=== PATIENT | female | born 1960 | race Caucasian/White ===

== ENCOUNTER → 2016-05-18 08:32 | Outpatient (CLI) | payer MEDICARE, MEDICAID ==
[2015-03-17 12:09] VITALS: BMI 31.3
[~2016-05-18 08:32] MED LIST: CELEXA40 MG PO; CYCLOBENZAPRINE10 MG PO; GLUCOPHAGE500 MG PO; HYDROCODON-ACE1 EAC7 PO; INDERAL10 MG PO; JANUMET 50-1,001 TAB PO; K-TAB10 MEQ PO; LASIX20 MG; LYRICA150 MG PO; NEURONTIN 300300 MG PO; NOVOLOG100 U/M1 SC; OMEPRAZOLE CAP 20M PO; OXYCODONE HCL5 MG PO; REXULTI PO; TYLENOL #4 W/CO1 TAB PO; VALIUM10 MG PO; ZOCOR10 MG PO
== END | disposition home or self-care (01) ==
LOC: D.CT 08:30
DX: Z12.31 Encounter for screening mammogram for malignant neoplasm of breast (principal); R10.11 Right upper quadrant pain

== ENCOUNTER → 2016-06-08 16:54 | Outpatient (CLI) | payer MEDICARE, MEDICAID ==
[2015-03-17 12:09] VITALS: BMI 31.3
== END | disposition home or self-care (01) ==
LOC: D.MAMMO 13:30
DX: Z12.31 Encounter for screening mammogram for malignant neoplasm of breast (principal); R10.11 Right upper quadrant pain

== ENCOUNTER 2016-07-12 06:36 | Day surgery (SDC) | payer MEDICARE ==
[~2016-07-12] VITALS: Ht 175.3 cm; Wt 91.2 kg
[~2016-07-12 06:36] MED LIST changes: -OXYCODONE HCL5 MG PO
[2016-07-12 06:49] LABS: BASOPHILS 0.3 % (0.0-2.0); EOSINOPHILS 4.3 % (0-7); HEMATOCRIT 33.9 % (36.0-48.0); HEMOGLOBIN 10.3 g/dL (12-16); IMMATURE GRANULOCYTES 0.3 % (0-5); LYMPHOCYTES 45.6 % (15-50); MCH 29.4 pg (26.0-34.0); MCHC 30.4 g/dL (31.0-37.0); MCV 96.9 fL (80.0-100.0); MEAN PLATELET VOLUME 11.3 fL (7.4-10.4); MONOCYTES 8.9 % (2-11); NEUTROPHILS 40.6 % (40-80); PLATELET COUNT 107 10x3/uL (130-400); RDW 13.9 % (11.5-14.5); WBC 3.7 10x3/uL (4.8-10.8)
--- NOTE | 2016-07-12 07:45 | NUR ---
0745 ABNORMAL VALUES ON CBC & CXR REPORT SHOWN TO DR. GARCÍA BY Dianne LANG R.N.. DR. GARCÍA STATES HE HAS SEEN THESE & IS OK WITH THEM. Ijeoma FULLER R.N.
[2016-07-12 08:02] VITALS: BP 145/78; Ht 175.3 cm; Wt 91.2 kg
[2016-07-12 08:50] LABS: CALC OSMOLALITY 286 mosm/kg (275-300); CALCIUM 9.2 mg/dL (8.5-10.1); CARBON DIOXIDE 30.9 mmol/L (21.0-32.0); CHLORIDE - SERUM 105 mmol/L (98-107); CREATININE - SERUM 0.6 mg/dL (0.6-1.3); GLUCOSE 129 mg/dL (74-106); POTASSIUM - SERUM 3.8 mmol/L (3.5-5.1); SODIUM 143 mmol/L (136-145); UREA NITROGEN 12 mg/dL (7-18); eGFR NON AFRICAN AMERICAN > 90 mL/min (90-120)
[2016-07-12] MEDS ORDERED: OXYCODONE HCL5 MG PO (09:52)
--- NOTE | 2016-07-12 10:22 | NUR ---
ANESTHESIA REPORTS THE PATIENT HAD AN O2 SAT OF 88% PER OPERATIVE. ANESTHESIA ORDERED OK TO DISCHARGE FROM PACU WITH O2 SAT > THEN 90%
--- NOTE | 2016-07-12 13:23 | OP ---
PATIENT NAME: FRANKI PEARSON MEDICAL RECORD: [id number] :62 LOCATION:[facility] ADMISSION DATE: SURGEON: ELTON GARCÍA MD DATE OF OPERATION: 07/12/2016 SURGEON: Elton García MD PREOPERATIVE DIAGNOSIS: Chronic cholecystitis. POSTOPERATIVE DIAGNOSES: 1. Chronic cholecystitis. 2. Cirrhosis ANESTHESIA: General. COMPLICATIONS: None. SPECIMENS: Gallbladder. Case was clean contaminated. ESTIMATED BLOOD LOSS: 30 cc. OPERATIVE COURSE: After consent was obtained, the patient was taken to the operating room and placed in the supine position on the operating table. Next, general anesthesia was given via endotracheal intubation after a timeout was performed to confirm the correct patient and procedure. Thereafter, the abdomen was prepped and draped in typical sterile fashion. Local anesthetic was injected just above the umbilicus. A stab incision was made with 11-blade scalpel. Using a 5-mm bladeless optical trocar, the abdomen was entered under direct laparoscopic vision. Adequate pneumoperitoneum was achieved. The abdominal cavity was inspected. No evidence of bowel injury. No evidence of bleeding. The patient was then placed in the steep reverse Trendelenburg position. All additional trocars were then placed after the administration of local anesthetic, two 5-mm trocars in the right upper quadrant and 11-mm trocar in the subxiphoid position. The fundus of the gallbladder was grasped and retracted cephalad. The infundibulum was grasped and retracted laterally. The peritoneum was incised using electrocautery. Once the peritoneum was incised, blunt dissection was performed with a [place] dissector and the suction analyst programmer until the critical view was obtained. The cystic duct lateral, cystic artery medial, liver in the posterior window, 3 clips were placed in the proximal cystic duct, 1 clip distal and 2 clips were placed in the proximal cystic artery. The duct and artery were then transected with laparoscopic Metzenbaum scissors. Once the duct and artery were transected, the remaining portion of the gallbladder was dissected off the liver bed using electrocautery. Once complete, the gallbladder was grasped with the tenaculum and removed through the 11-mm trocar and sent for permanent pathology. By gross inspection, the liver had severe bridging fibrosis consistent with cirrhosis. The operative site was copiously irrigated and suctioned. Careful attention was paid to hemostasis, which was obtained in the liver bed using electrocautery. Again, the abdominal cavity was inspected. At this time, there was no evidence of bowel injury. No evidence of bleeding, no evidence of bile leak. At this time, all remaining instruments were removed. The abdomen was desufflated. Trocars were removed. Skin was closed with 4-0 Monocryl, Mastisol and Steri-Strips. At the end of the case, all needle and instrument counts were correct. No OPERATIVE REPORT [id number] FRANKI PEARSON complications occurred. The patient was extubated and transferred to the PACU in stable condition. TRANSINT:[id number] Voice Confirmation ID: [id number] DOCUMENT ID: [id number] ELTON GARCÍA MD at 1323 CC: [id number] DICTATION DATE: 07/12/16 0956 HABITAT MANAGEMENT COORDINATOR: 07/12/[address] [address]
--- NOTE | 2016-07-12 15:06 | NUR ---
1315--PT VOIDS, IV DC'D. ALEXSANDRA DARLING 1325--DISCHARGE INSTRUCTIONS GIVEN, PT VERBALIZES UNDERSTANDING. PT OFF UNIT VIA WC. ALEXSANDRA DARLING
== END 2016-07-12 13:25 | disposition home or self-care (01) ==
LOC: D.OPS 06:36 → D.PAN 08:30 → D.OPS 09:00 → D.PAN 09:00 → D.OPS 13:25
PROVIDERS: Anesthesiology
DX: K80.10 Calculus of gallbladder with chronic cholecystitis without obstruction (principal); K74.60 Unspecified cirrhosis of liver

== ENCOUNTER 2016-07-22 16:20 | Emergency (ER) | payer MEDICARE ==
[2016-07-12 08:02] VITALS: BMI 29.7
[~2016-07-22 16:20] MED LIST changes: +OXYCODONE HCL5 MG PO
[2016-07-22 18:00] LABS: BASOPHILS 0.5 % (0.0-2.0); EOSINOPHILS 14.2 % (0-7); HEMATOCRIT 35.9 % (36.0-48.0); HEMOGLOBIN 11.2 g/dL (12-16); IMMATURE GRANULOCYTES 0.5 % (0-5); LYMPHOCYTES 33.9 % (15-50); MCHC 31.2 g/dL (31.0-37.0); MCV 96.2 fL (80.0-100.0); MEAN PLATELET VOLUME 10.8 fL (7.4-10.4); MONOCYTES 5.7 % (2-11); NEUTROPHILS 45.2 % (40-80); RBC 3.73 10x6/uL (4.00-5.40); RDW 13.8 % (11.5-14.5); WBC 7.5 10x3/uL (4.8-10.8)
[2016-07-22 18:01] LABS: PLATELET COUNT 139 10x3/uL (130-400)
[2016-07-22 18:17] LABS: ALBUMIN 3.6 g/dL (3.4-5.0); ALKALINE PHOSPHATASE 87 U/L (46-116); ALT (SGPT) 23 U/L (10-68); AMYLASE - SERUM 44 U/L (25-115); BILIRUBIN - TOTAL 0.36 mg/dL (0.2-1.3); CALC OSMOLALITY 284 mosm/kg (275-300); CALCIUM 9.6 mg/dL (8.5-10.1); CARBON DIOXIDE 30.8 mmol/L (21.0-32.0); CHLORIDE - SERUM 102 mmol/L (98-107); CREATININE - SERUM 0.7 mg/dL (0.6-1.3); GLUCOSE 111 mg/dL (74-106); LIPASE 313 U/L (73-393); POTASSIUM - SERUM 3.5 mmol/L (3.5-5.1); PROTEIN - SERUM 8.5 g/dL (6.4-8.2); SODIUM 143 mmol/L (136-145); UREA NITROGEN 9 mg/dL (7-18); eGFR NON AFRICAN AMERICAN > 90 mL/min (90-120)
== END 2016-07-22 19:00 | disposition home or self-care (01) ==
LOC: D.ER 16:20
PROVIDERS: Nurse Practitioner Acute Care
DX: K59.00 Constipation, unspecified (principal)

== ENCOUNTER 2016-07-24 18:15 | Emergency (ER) | payer MEDICARE ==
[2016-07-12 08:02] VITALS: BMI 29.7
[2016-07-24 19:05] LABS: BASOPHILS 0.7 % (0.0-2.0); EOSINOPHILS 15.5 % (0-7); HEMATOCRIT 34.4 % (36.0-48.0); HEMOGLOBIN 10.5 g/dL (12-16); IMMATURE GRANULOCYTES 0.3 % (0-5); LYMPHOCYTES 32.5 % (15-50); MCH 29.5 pg (26.0-34.0); MCHC 30.5 g/dL (31.0-37.0); MCV 96.6 fL (80.0-100.0); MEAN PLATELET VOLUME 10.4 fL (7.4-10.4); MONOCYTES 5.7 % (2-11); NEUTROPHILS 45.3 % (40-80); PLATELET COUNT 132 10x3/uL (130-400); RBC 3.56 10x6/uL (4.00-5.40); RDW 13.8 % (11.5-14.5); WBC 7.6 10x3/uL (4.8-10.8)
== END 2016-07-24 22:49 | disposition home or self-care (01) ==
LOC: D.ER 18:15
PROVIDERS: Emergency Medicine
DX: R10.31 Right lower quadrant pain (principal); K59.00 Constipation, unspecified

== ENCOUNTER 2016-10-26 11:56 | Emergency (ER) | payer MEDICARE ==
[2016-07-12 08:02] VITALS: BMI 29.7
[2016-10-26 14:03] LABS: BASOPHILS 0.5 % (0-2); EOSINOPHILS 3.9 % (0-7); HEMATOCRIT 36.5 % (36.0-48.0); HEMOGLOBIN 11.4 g/dL (12-16); LYMPHOCYTES 41.5 % (15-50); MCH 30.5 pg (26.0-34.0); MCHC 31.2 g/dL (31.0-37.0); MCV 97.6 fL (80.0-100.0); MEAN PLATELET VOLUME 11.3 fL (7.4-10.4); MONOCYTES 11.6 % (2-11); NEUTROPHILS 42.5 % (40-80); RBC 3.74 10x6/uL (4.00-5.40); RDW 14.4 % (11.5-14.5); WBC 4.3 10x3/uL (4.8-10.8)
[2016-10-26 14:08] LABS: PLATELET COUNT 83 10x3/uL (130-400)
[2016-10-26 15:01] LABS: PLATELET ESTIMATE DECREASED
[2016-10-26 15:35] LABS: APPEARANCE CLEAR (CLEAR); COLOR YELLOW (YELLOW)
[2016-10-26 15:36] LABS: BILIRUBIN NEGATIVE (NEGATIVE); GLUCOSE NEGATIVE (NEGATIVE); KETONE NEGATIVE (NEGATIVE); LEUKOCYTE ESTERASE TRACE (NEGATIVE); NITRITE NEGATIVE (NEGATIVE); PROTEIN NEGATIVE (NEGATIVE); UROBILINOGEN NORMAL (NORMAL)
[2016-10-26 15:39] LABS: BACTERIA MODERATE /hpf (NONE SEEN); EPITHELIAL CELLS 0-5 /hpf (0-5); RED CELLS - URINE 0-5 /hpf (0-5); WHITE CELLS - URINE 0-5 /hpf (0-5)
[2016-10-26 15:44] LABS: ALKALINE PHOSPHATASE 104 U/L (46-116); ALT (SGPT) 29 U/L (10-68); BILIRUBIN - TOTAL 0.47 mg/dL (0.2-1.3); CALC OSMOLALITY 279 mosm/kg (275-300); CALCIUM 9.7 mg/dL (8.5-10.1); CARBON DIOXIDE 23.8 mmol/L (21.0-32.0); CHLORIDE - SERUM 102 mmol/L (98-107); CREATININE - SERUM 0.8 mg/dL (0.6-1.3); GLUCOSE 112 mg/dL (74-106); LIPASE 164 U/L (73-393); POTASSIUM - SERUM 3.8 mmol/L (3.5-5.1); PROTEIN - SERUM 7.8 g/dL (6.4-8.2); SODIUM 139 mmol/L (136-145); UREA NITROGEN 14 mg/dL (7-18); eGFR NON AFRICAN AMERICAN 79 mL/min (90-120)
== END 2016-10-26 16:15 | disposition home or self-care (01) ==
LOC: D.ER 11:56
PROVIDERS: Emergency Medicine
DX: R10.11 Right upper quadrant pain (principal); D69.6 Thrombocytopenia, unspecified

== ENCOUNTER 2017-02-11 11:47 | Emergency (ER) | payer MEDICARE ==
[2016-07-12 08:02] VITALS: BMI 29.7
== END 2017-02-11 13:31 | disposition home or self-care (01) ==
LOC: D.ER 11:47
DX: M25.561 Pain in right knee (principal); L02.415 Cutaneous abscess of right lower limb; Z91.81 History of falling

== ENCOUNTER 2017-02-21 09:39 | Outpatient (CLI) | payer MEDICARE ==
[2017-02-21 13:36] VITALS: BP 118/69
== END 2017-02-21 14:15 | disposition home or self-care (01) ==
LOC: D.OPS 09:39
DX: D69.6 Thrombocytopenia, unspecified (principal)

== ENCOUNTER 2017-04-11 15:59 | Emergency (ER) | payer MEDICARE | END 2017-04-11 18:55 | disposition home or self-care (01) | LOC: D.ER 15:59 | DX: M25.562 Pain in left knee (principal); M25.561 Pain in right knee; M54.16 Radiculopathy, lumbar region ==

== ENCOUNTER 2017-05-13 21:31 | Emergency (ER) | payer MEDICARE | END 2017-05-14 00:10 | disposition home or self-care (01) | LOC: D.ER 21:31 | DX: M54.5 Low back pain (principal); M54.16 Radiculopathy, lumbar region ==

== ENCOUNTER 2017-08-03 17:04 | Emergency (ER) | payer MEDICARE | END 2017-08-03 19:48 | disposition home or self-care (01) | LOC: D.ER 17:04 | DX: M54.5 Low back pain (principal); M62.838 Other muscle spasm ==

== ENCOUNTER 2017-08-06 18:48 | Emergency (ER) | payer MEDICARE ==
[2017-08-06 19:22] LABS: APPEARANCE HAZY (CLEAR); BILIRUBIN NEGATIVE (NEGATIVE); COLOR YELLOW (YELLOW); GLUCOSE NEGATIVE (NEGATIVE); KETONE NEGATIVE (NEGATIVE); NITRITE NEGATIVE (NEGATIVE); PH 5.5 (5.0-6.0); PROTEIN TRACE mg/dL (NEGATIVE); SPECIFIC GRAVITY 1.015 (1.005-1.020); UROBILINOGEN NORMAL (NORMAL)
[2017-08-06 19:31] LABS: EPITHELIAL CELLS 0-5 /hpf (0-5); RED CELLS - URINE 0-5 /hpf (0-5); WHITE CELLS - URINE >50 /hpf (0-5)
[2017-08-06 19:32] LABS: BACTERIA MANY /hpf (NONE SEEN)
== END 2017-08-06 19:59 | disposition home or self-care (01) ==
LOC: D.ER 18:48
PROVIDERS: Family Medicine
DX: M54.5 Low back pain (principal); N39.0 Urinary tract infection, site not specified

== ENCOUNTER 2017-08-08 13:08 | Emergency (ER) | payer MEDICARE | END 2017-08-08 16:45 | disposition home or self-care (01) | LOC: D.ER 13:08 | DX: M54.5 Low back pain (principal); M54.30 Sciatica, unspecified side; M54.16 Radiculopathy, lumbar region ==

== ENCOUNTER 2017-08-17 07:32 | Day surgery (SDC) | payer MEDICARE ==
[~2017-08-17] VITALS: Ht 165.1 cm; Wt 92.7 kg
--- NOTE | ~2017-08-17 | OP ---
PATIENT NAME: FRANKI PEARSON MEDICAL RECORD: [id number] :62 LOCATION:D.OPS ADMISSION DATE: SURGEON: NONI WISE DO DATE OF OPERATION: 08/17/2017 PROCEDURE: EGD with biopsies. INDICATIONS FOR PROCEDURE: Heartburn, altered bowel function, history of H. pylori. SCOPE: Olympus video gastroscope. MEDICATIONS: Propofol 260 mg IV per anesthesia. ESTIMATED BLOOD LOSS: Minimal. COMPLICATIONS: None. FINDINGS: Informed consent was given. The patient was made comfortable with the above medication. After reaching an adequate level of sedation by slow IV push, the patient was placed on her left side. The endoscope was then advanced under direct visualization through the mouth to the second portion of the duodenum. The upper, middle, and lower thirds of the esophagus appeared normal. 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 A cold forceps biopsy was taken of a single tongue to rule out the presence of Bronson's. The endoscope was advanced beyond the GE junction into the stomach and retroflexed to view the cardia, where a small sliding hiatal hernia was present. Throughout the entire stomach, there was patchy gastritis characterized by congestion and erythema. Random biopsies were taken to submit for histology and to rule out continued presence of H. pylori, which has been treated in the past. The endoscope was advanced beyond the pylorus into the duodenum. The entire examined duodenum down to the second portion appeared normal. The endoscope was then withdrawn from the patient. The patient tolerated the procedure well and there were no complications. IMPRESSION: 1. 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 2. Small sliding hiatal hernia. 3. Gastritis characterized by congestion and erythema. PLAN AND RECOMMENDATIONS: 1. Discharge home when recovery parameters are met. 2. Follow up biopsy specimen results. 3. GERD diet and reflux precautions. 4. Increase omeprazole to 40 mg daily times 30 days, then reduce back down to 20 mg daily. TRANSINT:[id number] Voice Confirmation ID: [id number] DOCUMENT ID: [id number] OPERATIVE REPORT [id number] FRANKI PEARSON NONI WISE DO at 4743 CC: [id number] DICTATION DATE: 08/17/17 1316 ENFORCEMENT OFFICER: 08/17/17 1440 [facility] 08/17/17 [facility] [address] [place] [address]
[2017-08-17 09:29] LABS: HEMATOCRIT 34.8 % (36.0-48.0); HEMOGLOBIN 11.1 g/dL (12-16); MCH 29.3 pg (26.0-34.0); MCHC 31.9 g/dL (31.0-37.0); MCV 91.8 fL (80.0-100.0); MEAN PLATELET VOLUME 10.9 fL (7.4-10.4); RBC 3.79 10x6/uL (4.00-5.40); RDW 13.8 % (11.5-14.5); WBC 3.5 10x3/uL (4.8-10.8)
[2017-08-17 09:40] LABS: CALC OSMOLALITY 283 mosm/kg (275-300); CALCIUM 9.9 mg/dL (8.5-10.1); CARBON DIOXIDE 27.5 mmol/L (21.0-32.0); CHLORIDE - SERUM 103 mmol/L (98-107); CREATININE - SERUM 0.8 mg/dL (0.6-1.3); POTASSIUM - SERUM 3.7 mmol/L (3.5-5.1); SODIUM 140 mmol/L (136-145); UREA NITROGEN 13 mg/dL (7-18); eGFR NON AFRICAN AMERICAN 79 mL/min (90-120)
[2017-08-17 09:42] LABS: GLUCOSE 194 mg/dL (74-106)
[2017-08-17 11:14] VITALS: BP 139/68; Ht 165.1 cm; Wt 92.7 kg
== END 2017-08-17 14:00 | disposition home or self-care (01) ==
LOC: D.OPS 07:32
PROVIDERS: Anesthesiology
DX: K21.0 Gastro-esophageal reflux disease with esophagitis (principal); K44.9 Diaphragmatic hernia without obstruction or gangrene; K29.70 Gastritis, unspecified, without bleeding; R12 Heartburn; Z86.19 Personal history of other infectious and parasitic diseases; Z01.812 Encounter for preprocedural laboratory examination

== ENCOUNTER 2017-08-18 13:58 | Emergency (ER) | payer MEDICARE ==
[2017-08-17 11:14] VITALS: BMI 34.0
[2017-08-18 15:22] LABS: APPEARANCE CLEAR (CLEAR); BILIRUBIN NEGATIVE (NEGATIVE); COLOR DK YELLOW (YELLOW); GLUCOSE NEGATIVE (NEGATIVE); KETONE NEGATIVE (NEGATIVE); NITRITE NEGATIVE (NEGATIVE); PROTEIN NEGATIVE (NEGATIVE); UROBILINOGEN NORMAL (NORMAL)
[2017-08-18 15:24] LABS: RED CELLS - URINE 0-5 /hpf (0-5)
[2017-08-18 15:25] LABS: BACTERIA FEW /hpf (NONE SEEN)
== END 2017-08-18 16:06 | disposition home or self-care (01) ==
LOC: D.ER 13:58
PROVIDERS: Family Medicine
DX: N39.0 Urinary tract infection, site not specified (principal); B02.9 Zoster without complications; M54.9 Dorsalgia, unspecified

== ENCOUNTER 2017-08-23 21:26 | Emergency (ER) | payer MEDICARE ==
[2017-08-17 11:14] VITALS: BMI 34.0
== END 2017-08-24 00:24 | disposition home or self-care (01) ==
LOC: D.ER 21:26
DX: M54.5 Low back pain (principal); Z76.5 Malingerer [conscious simulation]

== ENCOUNTER 2017-10-21 23:20 | Emergency (ER) | payer MEDICARE ==
[~2017-10-21] VITALS: Ht 165.1 cm; Wt 92.7 kg
[2017-10-21 23:26] VITALS: Ht 165.1 cm; Wt 92.7 kg
[2017-10-22] MEDS ORDERED: ULTRAM50 MG PO (02:57)
[2017-10-22 04:04] VITALS: BP 108/61
== END 2017-10-22 04:05 | disposition home or self-care (01) ==
LOC: D.ER 23:20
DX: M54.5 Low back pain (principal)

== ENCOUNTER 2017-11-07 19:10 | Emergency (ER) | payer MEDICARE ==
[~2017-11-07] VITALS: Ht 165.1 cm; Wt 92.7 kg
[~2017-11-07 19:10] MED LIST changes: +ULTRAM50 MG PO
[2017-11-07 19:13] VITALS: Ht 165.1 cm; Wt 92.7 kg
[2017-11-07] MEDS ORDERED: CLARITIN 10 MG10 MG PO (19:48)
[2017-11-07] MEDS ORDERED: VALTREX500 MG PO (19:49)
[2017-11-07] MEDS ORDERED: KEFLEX500 MG PO (19:49)
[2017-11-07] MEDS ORDERED: ROBAXIN-750750 MG (19:50)
[2017-11-07] MEDS ORDERED: MACROBID100 MG PO (19:50)
[2017-11-07] MEDS ORDERED: VENTOLIN HFA18 GM INH (19:50)
[2017-11-07 20:31] LABS: APPEARANCE CLEAR (CLEAR); BILIRUBIN NEGATIVE (NEGATIVE); COLOR YELLOW (YELLOW); GLUCOSE 1000 mg/dL (NEGATIVE); KETONE NEGATIVE (NEGATIVE); NITRITE NEGATIVE (NEGATIVE); PROTEIN TRACE mg/dL (NEGATIVE); SPECIFIC GRAVITY 1.015 (1.005-1.020); UROBILINOGEN NORMAL (NORMAL)
[2017-11-07 20:32] LABS: BACTERIA MODERATE /hpf (NONE SEEN); EPITHELIAL CELLS 0-5 /hpf (0-5); WHITE CELLS - URINE >50 /hpf (0-5)
[2017-11-07 20:45] LABS: BASOPHILS 0.5 % (0-2); EOSINOPHILS 4.8 % (0-7); HEMATOCRIT 32.8 % (36.0-48.0); HEMOGLOBIN 10.1 g/dL (12-16); IMMATURE GRANULOCYTES 0.2 % (0-5); LYMPHOCYTES 40.4 % (15-50); MCH 28.9 pg (26.0-34.0); MCHC 30.8 g/dL (31.0-37.0); MCV 93.7 fL (80.0-100.0); MEAN PLATELET VOLUME 11.1 fL (7.4-10.4); MONOCYTES 7.3 % (2-11); NEUTROPHILS 46.8 % (40-80); PLATELET COUNT 94 10x3/uL (130-400); RDW 14.8 % (11.5-14.5); WBC 4.1 10x3/uL (4.8-10.8)
[2017-11-07 21:03] LABS: ALBUMIN 3.5 g/dL (3.4-5.0); ALKALINE PHOSPHATASE 88 U/L (46-116); ALT (SGPT) 16 U/L (10-68); BILIRUBIN - TOTAL 0.29 mg/dL (0.2-1.3); CALC OSMOLALITY 289 mosm/kg (275-300); CALCIUM 9.7 mg/dL (8.5-10.1); CARBON DIOXIDE 28.7 mmol/L (21.0-32.0); CHLORIDE - SERUM 106 mmol/L (98-107); CREATININE - SERUM 0.8 mg/dL (0.6-1.3); GLUCOSE 241 mg/dL (74-106); POTASSIUM - SERUM 3.8 mmol/L (3.5-5.1); PROTEIN - SERUM 7.4 g/dL (6.4-8.2); SODIUM 142 mmol/L (136-145); UREA NITROGEN 10 mg/dL (7-18); eGFR NON AFRICAN AMERICAN 78 mL/min (90-120)
[2017-11-07 21:05] LABS: KETONE - SERUM NEGATIVE (NEGATIVE)
[2017-11-07] MEDS ORDERED: HYDROCODONE-APA1 TAB PO (21:13)
[2017-11-07] MEDS ORDERED: CIPRO500 MG PO (21:13)
[2017-11-07 21:14] LABS: PLATELET ESTIMATE DECREASED
[2017-11-07 23:37] VITALS: BP 140/65
== END 2017-11-07 22:36 | disposition home or self-care (01) ==
LOC: D.ER 19:10
PROVIDERS: Emergency Medicine
DX: E11.65 Type 2 diabetes mellitus with hyperglycemia (principal); Z79.4 Long term (current) use of insulin; N39.0 Urinary tract infection, site not specified; I10 Essential (primary) hypertension; J44.9 Chronic obstructive pulmonary disease, unspecified; F90.9 Attention-deficit hyperactivity disorder, unspecified type

== ENCOUNTER 2017-12-07 15:36 | Emergency (ER) | payer MEDICARE ==
[~2017-12-07] VITALS: Ht 165.1 cm; Wt 92.5 kg
[~2017-12-07 15:36] MED LIST changes: +CIPRO500 MG PO; +CLARITIN 10 MG10 MG PO; +HYDROCODONE-APA1 TAB PO; +KEFLEX500 MG PO; +MACROBID100 MG PO; +ROBAXIN-750750 MG; +VALTREX500 MG PO; +VENTOLIN HFA18 GM INH
[2017-12-07 15:43] VITALS: Ht 165.1 cm; Wt 92.5 kg
[2017-12-07] MEDS ORDERED: ATARAX 25 MG TA25 MG PO (16:22)
[2017-12-07 17:12] VITALS: BP 115/65
== END 2017-12-07 17:09 | disposition home or self-care (01) ==
LOC: D.ER 15:36
DX: E11.9 Type 2 diabetes mellitus without complications (principal); J44.9 Chronic obstructive pulmonary disease, unspecified

== ENCOUNTER 2018-02-06 12:47 | Emergency (ER) | payer MEDICARE ==
[~2018-02-06] VITALS: Ht 165.1 cm; Wt 93.6 kg
[~2018-02-06 12:47] MED LIST changes: +ATARAX 25 MG TA25 MG PO
[2018-02-06 13:07] VITALS: Ht 165.1 cm; Wt 93.6 kg
[2018-02-06 13:25] LABS: BASOPHILS 0.5 % (0-2); EOSINOPHILS 3.2 % (0-7); HEMATOCRIT 37.1 % (36.0-48.0); HEMOGLOBIN 11.6 g/dL (12-16); IMMATURE GRANULOCYTES 0.4 % (0-5); LYMPHOCYTES 33.3 % (15-50); MCH 28.4 pg (26.0-34.0); MCHC 31.3 g/dL (31.0-37.0); MCV 90.7 fL (80.0-100.0); MEAN PLATELET VOLUME 11.6 fL (7.4-10.4); MONOCYTES 18.5 % (2-11); NEUTROPHILS 44.1 % (40-80); RBC 4.09 10x6/uL (4.00-5.40); RDW 14.9 % (11.5-14.5); WBC 5.6 10x3/uL (4.8-10.8)
[2018-02-06 13:35] LABS: PLATELET COUNT 75 10x3/uL (130-400)
[2018-02-06 13:44] LABS: ALBUMIN 3.8 g/dL (3.4-5.0); ALKALINE PHOSPHATASE 91 U/L (46-116); ALT (SGPT) 19 U/L (10-68); APPEARANCE SL CLDY (CLEAR); BILIRUBIN NEGATIVE (NEGATIVE); BILIRUBIN - TOTAL 0.62 mg/dL (0.2-1.3); CALC OSMOLALITY 279 mosm/kg (275-300); CALCIUM 9.7 mg/dL (8.5-10.1); CARBON DIOXIDE 30.4 mmol/L (21.0-32.0); CHLORIDE - SERUM 103 mmol/L (98-107); COLOR DK YELLOW (YELLOW); CREATININE - SERUM 0.7 mg/dL (0.6-1.3); GLUCOSE 139 mg/dL (74-106); GLUCOSE NEGATIVE (NEGATIVE); KETONE NEGATIVE (NEGATIVE); NITRITE POSITIVE (NEGATIVE); POTASSIUM - SERUM 3.5 mmol/L (3.5-5.1); PROTEIN NEGATIVE (NEGATIVE); PROTEIN - SERUM 8.6 g/dL (6.4-8.2); SODIUM 140 mmol/L (136-145); SPECIFIC GRAVITY 1.015 (1.005-1.020); UREA NITROGEN 9 mg/dL (7-18); eGFR NON AFRICAN AMERICAN > 90 mL/min (90-120)
[2018-02-06 13:46] LABS: BACTERIA MODERATE /hpf (NONE SEEN); CALCIUM OXALATE CRYSTALS 0-5 /hpf (NONE SEEN); EPITHELIAL CELLS 0-5 /hpf (0-5); MUCUS <1+ /lpf (NONE SEEN); RED CELLS - URINE RARE /hpf (0-5); WHITE CELLS - URINE >50 /hpf (0-5)
[2018-02-06] MEDS ORDERED: KEFLEX500 MG PO (14:13)
[2018-02-06 14:25] VITALS: BP 132/86
== END 2018-02-06 14:25 | disposition home or self-care (01) ==
LOC: D.ER 12:47
PROVIDERS: Family Medicine
DX: N39.0 Urinary tract infection, site not specified (principal); R21 Rash and other nonspecific skin eruption; R35.0 Frequency of micturition; E11.9 Type 2 diabetes mellitus without complications; I10 Essential (primary) hypertension; J44.9 Chronic obstructive pulmonary disease, unspecified

== ENCOUNTER 2018-03-20 06:21 | Day surgery (SDC) | payer MEDICARE ==
[~2018-03-20] VITALS: Ht 165.1 cm; Wt 92.7 kg
--- NOTE | ~2018-03-20 | OP ---
PATIENT NAME: FRANKI PEARSON MEDICAL RECORD: [id number] :62 LOCATION:D.OPS ADMISSION DATE: SURGEON: NONI WISE DO DATE OF OPERATION: 03/20/2018 PROCEDURE: Colonoscopy with polypectomy. INDICATIONS FOR PROCEDURE: Screening colonoscopy. SCOPE: Olympus video pediatric colonoscope. MEDICATIONS: Propofol 350 mg IV per anesthesia. WITHDRAWAL TIME: 16 minutes. ESTIMATED BLOOD LOSS: Minimal. COMPLICATIONS: None. FINDINGS: Informed consent was given. The patient was made comfortable with the above medication. After reaching an adequate level of sedation by slow IV push, the patient was placed on her left side. A digital rectal examination was performed and it was normal. The endoscope was then advanced under direct visualization through the rectum to the cecum, confirmed by the presence of the appendiceal orifice and ileocecal valve. The endoscope was slowly withdrawn. Mucosa was carefully examined. Prep quality was good. There was a single polyp seen today. It was located in the transverse colon. It was benign appearing and sessile and measured approximately 4 mm in diameter. It was removed using a combination of cold and hot snare. Polyp was retrieved. The endoscope was then withdrawn to the rectum and retroflexed within the rectum. There were grade I internal hemorrhoids without bleeding visualized. The endoscope was then withdrawn from the patient. The patient tolerated the procedure well and there were no complications. IMPRESSION: 1. A single, benign appearing, sessile polyp located in the transverse colon, status post polypectomy. 2. Grade I internal hemorrhoids without bleeding. PLAN AND RECOMMENDATIONS: 1. Discharge home when recovery parameters are met. 2. Follow up biopsy specimen results. 3. High fiber diet. 4. Continue current medications. 5. Dicyclomine 20 mg p.o. b.i.d. p.r.n. loose stools or abdominal pain and cramping for irritable bowel symptoms. 6. Recall colonoscopy in 5 years. TRANSINT:[id number] Voice Confirmation ID: [id number] DOCUMENT ID: [id number] OPERATIVE REPORT [id number] FRANKI PEARSON NONI WISE DO at 1426 CC: [id number] DICTATION DATE: 03/20/18 0852 AUTOMATIC SPINNING LATHE SETTER: 03/20/18 09 [facility] 03/20/18 [facility] [address] [place] [address]
[2018-03-20 06:42] LABS: BASOPHILS 0.4 % (0-2); EOSINOPHILS 4.8 % (0-7); HEMATOCRIT 36.3 % (36.0-48.0); IMMATURE GRANULOCYTES 0.2 % (0-5); LYMPHOCYTES 30.8 % (15-50); MCH 27.6 pg (26.0-34.0); MCHC 30.3 g/dL (31.0-37.0); MCV 91.2 fL (80.0-100.0); MEAN PLATELET VOLUME 10.8 fL (7.4-10.4); MONOCYTES 6.4 % (2-11); NEUTROPHILS 57.4 % (40-80); RBC 3.98 10x6/uL (4.00-5.40); RDW 14.9 % (11.5-14.5); WBC 4.8 10x3/uL (4.8-10.8)
[2018-03-20 06:45] LABS: PLATELET COUNT 98 10x3/uL (130-400)
[2018-03-20 06:51] LABS: CALC OSMOLALITY 284 mosm/kg (275-300); CALCIUM 9.9 mg/dL (8.5-10.1); CARBON DIOXIDE 29.2 mmol/L (21.0-32.0); CHLORIDE - SERUM 103 mmol/L (98-107); CREATININE - SERUM 0.7 mg/dL (0.6-1.3); POTASSIUM - SERUM 3.9 mmol/L (3.5-5.1); SODIUM 141 mmol/L (136-145); UREA NITROGEN 8 mg/dL (7-18); eGFR NON AFRICAN AMERICAN > 90 mL/min (90-120)
[2018-03-20 06:52] LABS: GLUCOSE 211 mg/dL (74-106)
[2018-03-20 07:17] VITALS: BP 137/75; Ht 165.1 cm; Wt 92.7 kg
== END 2018-03-20 09:40 | disposition home or self-care (01) ==
LOC: D.OPS 06:21
PROVIDERS: Anesthesiology
DX: Z12.11 Encounter for screening for malignant neoplasm of colon (principal); D12.3 Benign neoplasm of transverse colon; K64.0 First degree hemorrhoids; Z01.812 Encounter for preprocedural laboratory examination

== ENCOUNTER 2018-03-31 08:00 | Outpatient (CLI) | payer MEDICARE ==
[2018-03-20 07:17] VITALS: BMI 34.0
== END 2018-03-31 09:00 | disposition home or self-care (01) ==
LOC: D.MAMMO 08:00
DX: Z12.31 Encounter for screening mammogram for malignant neoplasm of breast (principal)

== ENCOUNTER 2018-11-07 20:41 | Observation (INO) | payer MEDICARE, MEDICAID ==
[~2018-11-07] VITALS: Ht 165.1 cm; Wt 89.5 kg
[~2018-11-07 20:41] MED LIST changes: -ROBAXIN-750750 MG; +ROBAXIN500 MG
[2018-11-07 21:38] LABS: APPEARANCE HAZY (CLEAR); BILIRUBIN NEGATIVE (NEGATIVE); COLOR YELLOW (YELLOW); GLUCOSE NEGATIVE (NEGATIVE); KETONE NEGATIVE (NEGATIVE); NITRITE POSITIVE (NEGATIVE); PROTEIN TRACE mg/dL (NEGATIVE); UROBILINOGEN NORMAL (NORMAL)
[2018-11-07 21:39] LABS: BACTERIA MANY /hpf (NONE SEEN); EPITHELIAL CELLS 0-5 /hpf (0-5); RED CELLS - URINE 0-5 /hpf (0-5); WHITE CELLS - URINE 25-50 /hpf (0-5)
[2018-11-07 21:48] LABS: UDS - AMPHET NEGATIVE QUAL (NEGATIVE); UDS - BARB NEGATIVE QUAL (NEGATIVE); UDS - BENZO POSITIVE QUAL (NEGATIVE); UDS - COCAINE NEGATIVE QUAL (NEGATIVE); UDS - OPIATE POSITIVE QUAL (NEGATIVE); UDS - PCP NEGATIVE QUAL (NEGATIVE); UDS - THC NEGATIVE QUAL (NEGATIVE)
[2018-11-07 22:05] VITALS: BP 106/56
[2018-11-07 22:21] VITALS: BP 110/50
[2018-11-07 22:23] LABS: BASOPHILS 0.6 % (0-2); EOSINOPHILS 3.7 % (0-7); HEMATOCRIT 33.7 % (36.0-48.0); IMMATURE GRANULOCYTES 0.2 % (0-5); LYMPHOCYTES 43.3 % (15-50); MCH 26.7 pg (26.0-34.0); MCHC 29.7 g/dL (31.0-37.0); MCV 90.1 fL (80.0-100.0); MEAN PLATELET VOLUME 11.1 fL (7.4-10.4); MONOCYTES 11.5 % (2-11); NEUTROPHILS 40.7 % (40-80); PLATELET COUNT 81 10x3/uL (130-400); RBC 3.74 10x6/uL (4.00-5.40); RDW 15.8 % (11.5-14.5); WBC 5.4 10x3/uL (4.8-10.8)
[2018-11-07 22:30] LABS: ALBUMIN 3.4 g/dL (3.4-5.0); ALKALINE PHOSPHATASE 103 U/L (46-116); ALT (SGPT) 23 U/L (10-68); BILIRUBIN - TOTAL 0.58 mg/dL (0.2-1.3); CALC OSMOLALITY 282 mosm/kg (275-300); CALCIUM 8.6 mg/dL (8.5-10.1); CARBON DIOXIDE 33.9 mmol/L (21.0-32.0); CHLORIDE - SERUM 103 mmol/L (98-107); CREATININE - SERUM 0.8 mg/dL (0.6-1.3); POTASSIUM - SERUM 3.3 mmol/L (3.5-5.1); PROTEIN - SERUM 7.4 g/dL (6.4-8.2); SODIUM 142 mmol/L (136-145); UREA NITROGEN 9 mg/dL (7-18); eGFR NON AFRICAN AMERICAN 78 mL/min (90-120)
[2018-11-07 22:33] LABS: GLUCOSE 122 mg/dL (74-106)
[2018-11-07 22:43] LABS: CREATINE KINASE 479 UL (21-215)
[2018-11-07 22:49] LABS: TROPONIN-I < 0.017 ng/mL (0.000-0.060)
[2018-11-07 22:51] LABS: PLATELET ESTIMATE DECREASED
[2018-11-07 22:58] VITALS: BP 109/49
[2018-11-07 23:44] VITALS: BP 108/59
[2018-11-08] VITALS (10 sets, daily range): BP systolic 107–136; BP diastolic 47–75; Ht 165.1 cm; Wt 89.5 kg
--- NOTE | 2018-11-08 01:20 | NUR ---
RECIEVED REPORT FROM YANET IN ER.
--- NOTE | 2018-11-08 01:29 | NUR ---
PT ARRIVED TO UNIT VIA WHEELCHAIR ACCOMPIENED BY HOSPITAL STAFF AND VISITOR. PT IN BED. CL IN REACH. WCTM
[2018-11-08] MEDS ORDERED: ESGIC TABLET1 TAB PO (02:24)
[2018-11-08] MEDS ORDERED: OXYCONTIN10 MG PO (02:25)
--- NOTE | 2018-11-08 05:18 | NUR ---
PT RESTING QUIETLY. CL IN REACH. NO DISTRESS NOTED. RESP EVEN AND UNLABORED. WCTM
[2018-11-08 07:26] LABS: ALBUMIN 3.2 g/dL (3.4-5.0); ALKALINE PHOSPHATASE 97 U/L (46-116); ALT (SGPT) 18 U/L (10-68); BILIRUBIN - TOTAL 0.59 mg/dL (0.2-1.3); CALC OSMOLALITY 285 mosm/kg (275-300); CALCIUM 8.3 mg/dL (8.5-10.1); CARBON DIOXIDE 33.3 mmol/L (21.0-32.0); CHLORIDE - SERUM 104 mmol/L (98-107); CKMB 13.5 U/L (0.0-3.6); CREATINE KINASE 436 UL (21-215); CREATININE - SERUM 0.6 mg/dL (0.6-1.3); GLUCOSE 127 mg/dL (74-106); MAGNESIUM - SERUM 1.2 mg/dL (1.8-2.4); PHOSPHOROUS 3.9 mg/dL (2.5-4.9); POTASSIUM - SERUM 3.1 mmol/L (3.5-5.1); PROTEIN - SERUM 6.9 g/dL (6.4-8.2); SODIUM 143 mmol/L (136-145); UREA NITROGEN 9 mg/dL (7-18); eGFR NON AFRICAN AMERICAN > 90 mL/min (90-120)
[2018-11-08 07:32] LABS: BASOPHILS 0.2 % (0-2); EOSINOPHILS 2.8 % (0-7); HEMATOCRIT 32.1 % (36.0-48.0); HEMOGLOBIN 9.6 g/dL (12-16); IMMATURE GRANULOCYTES 0.2 % (0-5); LYMPHOCYTES 42.3 % (15-50); MCH 26.8 pg (26.0-34.0); MCHC 29.9 g/dL (31.0-37.0); MCV 89.7 fL (80.0-100.0); MEAN PLATELET VOLUME 13.4 fL (7.4-10.4); MONOCYTES 12.4 % (2-11); NEUTROPHILS 42.1 % (40-80); RBC 3.58 10x6/uL (4.00-5.40); RDW 15.8 % (11.5-14.5); TROPONIN-I < 0.017 ng/mL (0.000-0.060); WBC 4.4 10x3/uL (4.8-10.8)
[2018-11-08 07:36] LABS: PLATELET COUNT 64 10x3/uL (130-400)
--- NOTE | 2018-11-08 08:00 | NUR ---
PATIENT IS ALERT/ORIENT. VOICES NO NEEDS. CALL LIGHT WITHIN REACH. WILL CONTINUE WITH PLAN OF CARE
[2018-11-08 08:03] LABS: PLATELET ESTIMATE DECREASED
--- NOTE | 2018-11-08 09:30 | NUR ---
PATIENT HAS NO IV ACCESS. 22 DANIEL INSERTED IN RIGHT FOREARM
[2018-11-08 12:22] LABS: % SATURATION 11 % (15-55); IRON 41 ug/dl (35-150); TOTAL IRON BIND CAPACITY 366 ug/dl (260-445); UNSAT IRON BIND CAPACITY 325 ug/dl (150-375)
[2018-11-08 12:31] LABS: CKMB 9.6 U/L (0.0-3.6); CREATINE KINASE 393 UL (21-215); TROPONIN-I < 0.017 ng/mL (0.000-0.060)
--- NOTE | 2018-11-08 12:39 | NUR ---
PATIENT REFUSING SCD'S. PATIENT UP WALKING AROUND HER ROOM ROXANNE
--- NOTE | 2018-11-08 14:06 | NUR ---
ORTHOSTATIC VITALS: LYIN/75, HR 84 SITTIN/67, HR 87 STANDING 126/57, HR 91
--- NOTE | 2018-11-08 14:59 | NUR ---
I have reviewed this patient and I concur with the Shift Assessment completed by the Licensed Practical Nurse today this shift.
--- NOTE | 2018-11-08 17:39 | NUR ---
OT NOTE: PT COMPLETED ADL MOB TASKS WITH SBA/SPV. THANK YOU, GUILLERMO ADAMS
[2018-11-08 18:26] LABS: CREATINE KINASE 331 UL (21-215)
[2018-11-08 18:33] LABS: TROPONIN-I < 0.017 ng/mL (0.000-0.060)
--- NOTE | 2018-11-08 19:30 | NUR ---
EVENING ROUNDS MADE. PT LAYING IN BED RESTING. DENIES FURTHER CONCERNS AT THIS TIME. FALL PRECAUTIONS IN PLACE. BED LOWERED AND LOCKED. CL IN REACH. WILL CTM.
--- NOTE | 2018-11-08 21:30 | NUR ---
VITALS STABLE. PT TOOK MEDS WITHOUT DIFFICULTY. C/O PAIN IN BACK. TYLENOL GIVEN. NO FURTHER CONCERNS AT THIS TIME. BED LOWERED AND LOCKED. CL IN REACH. WILL CTM.
[2018-11-08 23:47] LABS: CKMB 3.7 U/L (0.0-3.6); CREATINE KINASE 251 UL (21-215)
[2018-11-08 23:48] LABS: TROPONIN-I < 0.017 ng/mL (0.000-0.060)
[2018-11-09] VITALS (7 sets, daily range): BP systolic 112–143; BP diastolic 48–72
[2018-11-09 05:10] LABS: BASOPHILS 0.3 % (0-2); EOSINOPHILS 4.5 % (0-7); HEMOGLOBIN 9.9 g/dL (12-16); IMMATURE GRANULOCYTES 0.6 % (0-5); LYMPHOCYTES 45.2 % (15-50); MCH 26.7 pg (26.0-34.0); MCV 88.9 fL (80.0-100.0); MEAN PLATELET VOLUME 11.5 fL (7.4-10.4); MONOCYTES 9.7 % (2-11); NEUTROPHILS 39.7 % (40-80); PLATELET COUNT 73 10x3/uL (130-400); RBC 3.71 10x6/uL (4.00-5.40); RDW 15.5 % (11.5-14.5); WBC 3.3 10x3/uL (4.8-10.8)
[2018-11-09 05:34] LABS: CALC OSMOLALITY 288 mosm/kg (275-300); CALCIUM 8.1 mg/dL (8.5-10.1); CARBON DIOXIDE 29.1 mmol/L (21.0-32.0); CHLORIDE - SERUM 110 mmol/L (98-107); CREATININE - SERUM 0.6 mg/dL (0.6-1.3); GLUCOSE 142 mg/dL (74-106); MAGNESIUM - SERUM 1.5 mg/dL (1.8-2.4); POTASSIUM - SERUM 3.2 mmol/L (3.5-5.1); SODIUM 145 mmol/L (136-145); UREA NITROGEN 7 mg/dL (7-18); eGFR NON AFRICAN AMERICAN > 90 mL/min (90-120)
[2018-11-09 05:41] LABS: PHOSPHOROUS 2.8 mg/dL (2.5-4.9)
--- NOTE | 2018-11-09 07:30 | NUR ---
A/A/OX4. DENIES ANY PAIN OR DISCOMFORT AND VOICES NO REQUESTS. NEURO CHECKS DONE WITH NO DEFICITS NOTED. IV PATENT TO LEFT INNER FOREARM WITHOUT REDNESS OR EDEMA NOTED AT SITE. ASSESSMENT COMPLETED AND WILL CONTINUE POC. CALL LIGHT IN REACH AND BED LOCKED IN LOW POSITION. AND GRANDDAUGHTER AT BEDSIDE.
[2018-11-09] MEDS ORDERED: LASIX20 MG PO (11:41)
[2018-11-09] MEDS ORDERED: JANUMET 50-1,01 EAC1 PO (11:42)
[2018-11-09] MEDS ORDERED: LYRICA25 MG PO (11:43)
[2018-11-09] MEDS ORDERED: LYRICA100 MG PO (11:44)
[2018-11-09] MEDS ORDERED: OMEPRAZOLE20 M1 PO (11:46)
[2018-11-09] MEDS ORDERED: OXYBUTYNIN CHLOR5 MG PO (11:47)
[2018-11-09] MEDS ORDERED: ALBUTEROL SULF8.5 GM INH (11:50)
[2018-11-09] MEDS ORDERED: TOUJEO SOL300 UNIT/1 SC (11:53)
--- NOTE | 2018-11-09 12:21 | NUR ---
OT NOTE: PT AMB IN ROOM WITHOUT ASSIST; ABLE TO PERFORM TOILETING, DRESSING, AND GROOMING WITHOUT ASSIST. NO FURTHER OT NEEDS AT THIS TIME. MARIA LUISA CRAMER, OTR/L
--- NOTE | 2018-11-09 12:23 | NUR ---
ORTHOSTATIC B/P: LYING 124/75 SITTING 145/90 STANDING 142/86
--- NOTE | 2018-11-09 14:57 | NUR ---
I have reviewed this patient and I concur with the Shift Assessment completed by the Licensed Practical Nurse today this shift.
--- NOTE | 2018-11-09 19:15 | NUR ---
BEDSIDE REPORT RECEIVED FROM DAY NURSE. PT CARE ASSUMED. PT AAOX4, LYING IN BED, GRANDDAUGHTER AT BEDSIDE. REPORTS CHRONIC BACK PAIN OF 8 ON A SCALE OF 0-10. DENIES OTHER NEEDS AT THIS TIME. BED IN LOWEST POSITION, SR X2, CALL LIGHT WITHIN REACH. WILL CONTINUE POC.
--- NOTE | 2018-11-09 23:25 | NUR ---
GREETED PATIENT AND INTRODUCED MYSELF. PATIENT IS LAYING IN BED ON RIGHT SIDE. HOB AT 30 DEGREES. FAMILY MEMBER AT BEDSIDE. DENIES ANY NEEDS AT THIS TIME. CALL LIGHT IN REACH.
[2018-11-10] VITALS: BP 112/53
[2018-11-10 04:00] VITALS: BP 138/72
[2018-11-10 04:07] LABS: BASOPHILS 0.2 % (0-2); EOSINOPHILS 3.4 % (0-7); HEMATOCRIT 32.9 % (36.0-48.0); HEMOGLOBIN 9.9 g/dL (12-16); IMMATURE GRANULOCYTES 0.2 % (0-5); MCH 26.7 pg (26.0-34.0); MCHC 30.1 g/dL (31.0-37.0); MCV 88.7 fL (80.0-100.0); MEAN PLATELET VOLUME 11.7 fL (7.4-10.4); NEUTROPHILS 46.2 % (40-80); PLATELET COUNT 79 10x3/uL (130-400); RBC 3.71 10x6/uL (4.00-5.40); RDW 15.7 % (11.5-14.5)
[2018-11-10 04:09] LABS: WBC 4.4 10x3/uL (4.8-10.8)
[2018-11-10 04:24] LABS: CALC OSMOLALITY 288 mosm/kg (275-300); CALCIUM 8.6 mg/dL (8.5-10.1); CARBON DIOXIDE 26.4 mmol/L (21.0-32.0); CHLORIDE - SERUM 110 mmol/L (98-107); CREATININE - SERUM 0.7 mg/dL (0.6-1.3); GLUCOSE 142 mg/dL (74-106); MAGNESIUM - SERUM 1.6 mg/dL (1.8-2.4); SODIUM 145 mmol/L (136-145); UREA NITROGEN 7 mg/dL (7-18); eGFR NON AFRICAN AMERICAN > 90 mL/min (90-120)
[2018-11-10 04:25] LABS: POTASSIUM - SERUM 2.9 mmol/L (3.5-5.1)
[2018-11-10 04:27] LABS: PLATELET ESTIMATE DECREASED
[2018-11-10 04:28] LABS: PLATELET MORPHOLOGY GIANT PLTS PRESENT
[2018-11-10 08:38] VITALS: BP 130/62
--- NOTE | 2018-11-10 09:49 | NUR ---
PT STATES SHE TAKE S OXYCODONE 10 TID AT HOME FOR PAIN, BUT SHE HASN'T HAD ANY HERE. STATES HER PAIN LEVEL IS A 10. PREFORMED PT EDUCATION THAT SHE NEEDS TO ASK FOR IT. PT STATES SHE'S SUPPOSED TO LEAVE TODAY REGARDLESS BUT SHE'D STILL LIKE TO AHVE IT IN THE MEANTIME IF POSSIB.E PT IS AWAKE AND ORIENTED, SITTING ON SIDE OF BED AFTER USING THE RESTROOM. OTHER THAN HER PAIN (STOMACH) SHE REPORTS NO COPMLAINTS/CONCERNS. WOULD VERY MUCH LIKE TO ELAVE NICHELLE.
--- NOTE | 2018-11-10 10:25 | NUR ---
PT STATES SHE WOULD LIKE TO G O HOME REGARDLESS OF THE FACT WE DON'T HAVE CONFIRMATION ON HER URINE CULTURE. SHE WANTS TO LEAVE TODAY AND IS IMPATIENT. PT IS UNDERSTANDING OF THE FACT SHE HAS TO WAIT ON THE DR. TO ROUND. PT HAD QUESTIONS ABOUT HER ADMITTING DIAGNOSES WHICH I ANSWERED TO THE BEST OF MY ABILITY. NO FURTHER QUESTIONS AT THIS TIME. CL IN REACH, SRX2.
[2018-11-10 12:20] VITALS: BP 131/61
--- NOTE | 2018-11-10 15:53 | NUR ---
PT DAUGHTER OR GRANDDAUGHTER HAS BEEN IN THE BED ALL DAY. PT HAS GOTTEN NO REST OR SLEEP D/T HER FAMILY MEMBER SLEEPING AND NOT MOVING AT ALL. PT HAS BACK TROUBLE AND HAS NOT BEEN COMFORTABLE IN THE CHIARS. FAMILY MEMBER WILL NOT MOVE.
[2018-11-10] MEDS ORDERED: OMNICEF300 MG PO (16:34)
--- NOTE | 2018-11-10 17:36 | NUR ---
PT ESCORTED OUT VIA WHEELCHAIR TO [facility].
--- NOTE | 2018-11-13 08:36 | MORECARE ---
CASE MANAGEMENT DISCHARGE SUMMARY PATIENT: FRANKI PEARSON UNIT: [id number] ADM DATE: 11/08/18 AGE: 58 : 62 SEX: F ROOM/BED: D.2105 AUTHOR: BENNY SANTIZO PHYSICIAN: REFERRING PHYSICIAN: STARLA CARROLL MD DATE OF SERVICE: 11/13/18 Discharge Plan Patient Name: FRANKI PEARSON Facility: [facility]:[place] : 1960 Planned Disposition: Home Anticipated Discharge Date: 11/10/18 Discharge Date: 11/10/2018 Expected LOS: 2 Initial Reviewer: [email or web address] Initial Review Date: 11/13/2018 Generated: 11/13/18 9:36 am Coverage Notice Reviewer: [email or web address] Valencia Perdomo Notice Issued Date-Time: 11/10/2018 12:00 Notice Type: Medicare Outpatient Observation Notice Notice Delivered To: Patient Relationship to Patient: Self Oracle Business Intelligence Developer Name: Delivery Method: HAND - Hand Delivered Lori Days: Prior Verbal Notification: Recipient Understood Notice: Yes Recipient Signature: Yes Med Rec Note Co-signed by Attending: Coverage Notice Comment: Patient Name: FRANKI PEARSON Page [id number] at 0836 All edits/amendments must be made on the electronic document DICTATION DATE: 11/13/18 0836 DRIER TENDER: CAMILLE 11/13/18 0836 RPT#: [id number] DC DATE:11/10/18 STATUS: DIS IN [id number] [place] [address] END OF REPORT
--- NOTE | 2018-11-13 18:38 | EC ---
PATIENT:FRANKI PEASRON DATE OF SERVICE: 11/08/18 SEX: F MEDICAL RECORD: [id number] DATE OF : 62 LOCATION:D.M2 D.210 AGE OF PATIENT: 58 ADMISSION DATE: 11/08/18 REFERRING PHYSICIAN: INTERPRETING PHYSICIAN: LEILANI RILEY MD ECHOCARDIOGRAM REPORT ECHO CHARGES 4 ECHO COMPLETE Date: 11/08/18 CLINICAL DIAGNOSIS: SYNCOPE ECHOCARDIOGRAPHIC MEASUREMENTS (adult normal given) AC root (d.<3.7cm) 3.0 cm LV Septum d (<1.2 cm> 1.3 cm Valve Excursion 1.6 cm LV Septum (systole) 1.7 cm Left Atria (s.<4.0cm> 4.1 cm LVPW d(<1.2cm) 1.7 cm RV (d.<2.3cm) 4.3 cm LVPW (sytole) 1.9 cm LV diastole(<5.6CM) 5.3 cm MV E-F(>70mm/sec) cm LV systole 3.9 cm LVOT Diameter 2.1 cm MV exc.(>10mm) 1.2 cm Est.ejection fraction (50-75%) % DOPPLER: LVIT cm/sec A 93.0 cm/sec E 85.0 cm/sec LA cm/sec RVSP 57 mmHg LVOT 91 cm/sec AOP1/2T m/s Asc. Ao 140 cm/sec RVOT 92 cm/sec RA cm/sec PA 137 cm/sec AV Gradient Peak 7.89 mmHg AV Mean 4.04 mmHg AV Area 1.8 cm MV Gradient Peak 5.77 mmHg MV Mean 2.48 mmHg MV Area cm COMMENTS: Auto Tire Recapper: Denisse MEANS Diabetes Specialist: 1 Dr. Riley TAPE# PACS Pericardial Effusion N DATE OF SERVICE: 11/08/2018 FINDINGS: 1. Left ventricular chamber size is within normal limits. Left ventricular systolic function is normal. Overall ejection fraction is estimated at 60%. 2. Left atrium is enlarged at 4.1 cm. Right atrium and right ventricular chamber sizes are as well mildly dilated. 3. Valvular structures have normal structure and motion. 4. Doppler interrogation reveals mild mitral regurgitation and vkdvzwki-we-znscee tricuspid regurgitation. No other valvular insufficiency or ECHOCARDIOGRAM REPORT [id number] LILI,FRANKI ANI stenosis. Pulmonary systolic pressure is estimated at 57 mmHg. 5. No evidence of pericardial effusion or left ventricular thrombus. TRANSINT:[id number] Voice Confirmation ID: [id number] DOCUMENT ID: [id number] LEILANI RILEY MD at 1838 CC: [id number] DICTATION DATE: 11/08/181709 COMPENSATION CONSULTANT: 11/08/181909 DIS IN 11/10/18 [facility] [address] [id number]
--- NOTE | 2018-11-13 18:38 | CN ---
PATIENT NAME:FRANKI PEARSON MEDICAL RECORD: [id number] : 62 LOCATION:D.M2 D.2105 ADMIT DATE: 11/08/18 ACCOUNT: [id number] CONSULTING PHYSICIAN: LEILANI WRIGHT MD REFERRING PHYSICIAN: STARLA CARROLL MD DATE OF CONSULTATION: 11/08/2018 CARDIOLOGY CONSULT DIAGNOSES: 1. Syncope. 2. Hyperlipidemia. 3. Diabetes. HISTORY OF PRESENT ILLNESS: Mrs. Pearson presented with syncope. She has had an elevated CK-MB; however, troponins are normal. Her EKG is with no changes. She did not have any chest pain or chest discomfort. It is stated she has a history of congestive heart failure. I am not sure where that came from. She has a normal ejection fraction. She had a cardiac catheterization in 2014 with no coronary artery disease. At this time, we will get an echocardiogram to get an accurate evaluation of her ejection fraction. I do not see any cardiac etiology of the syncope. Other than the echo, no other cardiac workup or treatment is necessary. TRANSINT:[id number] Voice Confirmation ID: [id number] DOCUMENT ID: [id number] LEILANI WRIGHT MD at 1838 CC: [id number] DICTATION DATE: 11/08/18 165 DECK ENGINEER: 11/08/18 1843 DIS IN 11/10/18 [address] [place] [address]
== END 2018-11-10 17:36 | disposition home or self-care (01) ==
LOC: D.ER 20:41 → D.M2 11-08 00:14 → OBSVTIME 11-08 00:14 → D.M2 11-08 00:14
PROVIDERS: Family Medicine; Family Medicine Adult Medicine; ADMIT Family Medicine; ATTEND Family Medicine
DX: R55 Syncope and collapse (principal); N39.0 Urinary tract infection, site not specified; J44.9 Chronic obstructive pulmonary disease, unspecified; E11.65 Type 2 diabetes mellitus with hyperglycemia; I11.0 Hypertensive heart disease with heart failure; I50.9 Heart failure, unspecified; D64.9 Anemia, unspecified; E87.6 Hypokalemia; E83.42 Hypomagnesemia; S09.90XA Unspecified injury of head, initial encounter; W19.XXXA Unspecified fall, initial encounter